=== PATIENT | female | born 1945 | race Two or more races ===

== ENCOUNTER 2019-06-16 16:53 | Emergency (ER) | payer SELFPAY ==
[~2019-06-16] VITALS: Ht 157.5 cm; Wt 50.0 kg
[2019-06-16 17:35] LABS: BASOPHILS % 0.6 % (0.0-2.0); EOSINOPHILS % 1.5 % (0.0-5.0); HEMATOCRIT. 34.9 % (36.0-48.0); HEMOGLOBIN. 11.8 g/dL (12.0-16.0); LYMPHOCYTES % 21.4 % (20.0-50.0); MEAN CORPUSCULAR HEMOGLOBIN 32.1 pg (28.0-32.0); MEAN CORPUSCULAR VOLUME 95.2 fL (81.0-99.0); MEAN PLATELET VOLUME 7.9 fl (7.4-10.4); MONOCYTES % 8.4 % (2.0-8.0); NEUTROPHILS % 68.1 % (40.0-76.0); PLATELET 264 x1000/uL (130-400); RED BLOOD CELL COUNT 3.66 mill/uL (4.2-5.4); RED CELL DISTRIBUTION WIDTH 14.9 % (11.6-14.6)
[2019-06-16 17:58] LABS: CHLORIDE 113 mEq/L (98-107)
[2019-06-16 21:15] VITALS: BP 110/66
== END 2019-06-16 21:35 | disposition home or self-care (01) ==
LOC: ER 16:53
DX: R42 Dizziness and giddiness (principal); R55 Syncope and collapse
CPT/HCPCS: 36415; 71045; 80053; 83880; 84484; 85025; 93005; 99285